=== PATIENT | male | born 1975 | race Caucasian/White ===

== ENCOUNTER 2023-05-20 07:25 | Outpatient (OUT) | payer OTHER, SELFPAY ==
[2023-05-20 10:31] LABS: Calcium 8.5 mg/dL (8.5-10.1); Carbon Dioxide 25.9 mmol/L (21.0-32.0); Chloride 101 mmol/L (98-107); Chol HDL Ratio 4.1; Cholesterol 178 mg/dL (<=200); Estimated GFR (African America >60 (>=60); Estimated GFR (Non-African Ame >60 (>=60); Glucose 94 mg/dL (74-106); HDL Cholesterol 43 mg/dL (40-60); LDL Cholesterol Calculated 117.6 mg/dL; Potassium 3.9 mmol/L (3.5-5.1); Sodium 137 mmol/L (136-145); Triglycerides 87 mg/dL (<=150); VLDL CHOLESTEROL 17.4 mg/dL
== END 2023-05-20 07:26 | disposition home or self-care (01) ==
LOC: LAB 07:25
PROVIDERS: PCP Family Medicine; Visit Provider Family Medicine
DX: Z00.00 Encounter for general adult medical examination without abnormal findings (principal)
CPT/HCPCS: 36415; 80048; 80061

== ENCOUNTER 2023-12-24 11:53 | Outpatient (OUT) | payer OTHER, SELFPAY ==
--- OUTSIDE RECORDS SUMMARY | 2023-12-24 12:02 | XMS_ITS | CCD ---
Author Organization [facility] Care Team Providers Care Casting Tester Name Role Phone DO YING Primary Care Physician Emily AGUERO Attending Unavailable NILL, Emily Quevedo Attending Unavailable NILL, Emily Quevedo Attending Unavailable NILL, DR DIAZ Admitting Unavailable NILL, DR DIAZ Attending Unavailable YING, DR DO Grimm Primary Care Unavailable NILL, DR DIAZ Consulting Unavailable NILL, DR DIAZ Admitting Unavailable NILL, DR DIAZ Attending Unavailable YING, DR DO Grimm Primary Care Unavailable NILL, DR DIAZ Consulting Unavailable MARIANNA, MARLON VENTURA Consulting Unava ilable GEMBUS, ALEX Consulting Unavailable FRANSISCAY, DR JOHN Admitting Unavailable HOY, DR JOHN Attending Unavailable YING, DR DO Grimm Primary Care Unavailable ROBERTO, DR JOHN Consulting Unavailable Allergies Allergy Classification Reported Allergen(s) Allergy Type Date of Onset Reaction(s) Facility (1 source) No Known Medication Allergies; Translations: [No Known Medication Allergies] Propensity to adverse reactions (disorder) [facility] Repository Medications Current Medications Medication Drug Class(es) Dates Sig (Normalized) Sig (Original) azithromycin 250 mg oral tablet (1 source) Macrolide Antimicrobial Start: 04-27-2023 Azithromycin Active 0 PO .COMPLEX April 27, 2023 12:00am For 250 mg dose pack: take 500 mg today (day 1), then 250 mg for 4 days (days 2-5) PO Problems Problem Classification Problem Date Documented Date Episodic/Chronic Abdominal pain (3 sources) Left upper quadrant pain; Translations: [Right upper quadrant pain] Onset: 02-15-2022 02-03-2022 Episodic Disorders of lipid metabolism (1 source) 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 Esophageal disorders (3 sources) Gastroesophageal reflux disease; Translations: [Gastro-esophageal reflux disease without esophagitis] Onset: 02-15-2022 01-30-2022 Chronic Gastritis and duodenitis (3 sources) Chronic superficial gastritis; Translations: [Chronic superficial gastritis without bleeding] Onset: 02-15-2022 Chronic Immunizations and screening for infectious disease (4 sources) Encounter for immunization; Translations: [ENCOUNTER FOR IMMUNIZATION] Onset: 01-01-2022 Episodic Influenza (1 source) Influenza due to Influenza A virus; Translations: [Influenza due to other identified influenza virus with other respiratory manifestations] 04-27-2023 Episodic Other and unspecified benign neoplasm (1 source) Lipoma (clinical) 02-03-2022 Episodic Other nutritional; endocrine; and metabolic disorders (1 source) Body mass index 30+ - obesity 02-03-2022 Chronic Other screening for suspected conditions (not mental disorders or infectious disease) (5 sources) Screening for malignant neoplasm of colon done; Translations: [Encounter for screening for malignant neoplasm of colon] Onset: 02-11-2022 Episodic Other skin disorders (1 source) Mass of chest wall 01-30-2022 Episodic Other upper respiratory disease (1 source) Nasal congestion 01-30-2022 Episodic Other upper respiratory infections (1 source) Acute maxillary sinusitis; Translations: [Acute maxillary sinusitis, unspecified] 04-27-2023 Episodic Unclassified (1 source) Patient encounter status 02-03-2022 Unclassified (1 source) CONTACT W/AND (SUSP) EXPOS COVID-19; Translations: [CONTACT W/AND (SUSP) EXPOS COVID-19] Onset: 02-14-2022 Results Test Name Value Interpretation Reference Range Facility General Surgery Office/Clini c Noteon 02-17-2022 General Surgery Office/Clinic Note Chief Complaint post operative follow up HPI Staff 6 day post operative follow up post colonoscopy and EGD with antral biopsy. LUQ pain and GERD symptoms have resolved. History of Present Illness s/p EGD and colonoscopy due to LUQ pain, GERD, colorectal screening; mild antral gastritis, bx negative for H pylori; normal colonoscopy. doing well, denies abd pain or blood in stools. Review of Systems ROS - Provider Constitutional: no fever, no sweats, no weight loss. Eyes: no glasses, no blurred vision, no visual loss. ENMT: no dentures, no hoarseness, no swallowing difficulties, no hearing loss, no ear infection(s), no nose bleeds. Cardiovascular: normal blood pressure, no chest pain, regular heartbeat, no heart murmur. Respiratory: no shortness of breath, no cough, no asthma, no wheezing. Gastrointestinal: no nausea, no vomiting, no diarrhea, no constipation, no blood in stool, no change in bowel habits, no abdominal pain, no hepatitis. Genitourinary: no kidney stones, no urine infection, no dysuria. Musculoskeletal: no pain, no weakness. Skin: no changing moles, no rash, no skin lumps. Neurologic: no seizures, no epilepsy, no headache. Psychiatric: no emotional or psychiatric problem. Heme/Lymph: no bleeding problems, no anemia, no blood clots, no transfusions. Allergy/Immunologic: no swollen lymph nodes/glands, no IV drug abuse. Other: Additional ROS info: Except as noted in the above Review of Systems and in the History of Present Illness, all other systems have been reviewed and are negative or noncontributory. Assessment/Plan 1. Chronic superficial gastritis without bleeding (K29.30: Chronic superficial gastritis without bleeding) currently asymptomatic, call with problems/questions. 2. Screening for malignant neoplasm of colon (Z12.11: Encounter for screening for malignant neoplasm of colon) normal colon; recommend screening colonoscopy in 10 years, call sooner if problems/questions. Follow-up No qualifying data available Problem List/Past Medical History Ongoing Abdominal pain, LUQ (left upper quadrant) Antral gastritis BMI 31.0-31.9,adult Chronic GERD Chronic nasal congestion Fibrolipoma GERD (gastroesophageal reflux disease) Mass of left chest wall RUQ pain Screening for malignant neoplasm of colon Very low density lipoprotinemia Historical No qualifying data Procedure/Surgical History Colonoscopy (02/11/2022), EGD - Esophagogastroduodenoscopy (02/11/2022). Medications No active medications Allergies No Known Allergies No Known Medication Allergies Social History Alcohol - Denies Alcohol Use, 02/03/2022 Substance Abuse Past, Marijuana, 02/03/2022 Tobacco Never (less than 100 in lifetime) Tobacco Use:. Never Smokeless Tobacco Use:., 02/03/2022 Family History Asthma: Sister. Hypertension: Mother. Immunizations Vaccine Date Status Comments influenza virus vaccine, inactivated - Not Given Patient Refuses Normal [facility] Comment on above: Result Comment: Elec tronically Signed By: DYLAN MANZO, Emily Lee\Date and Time Signed: 02/17/22 13:30 EST Pathology Noteon 02-13-2022 Pathology Note [id number]:127 Normal [facility] Outside Colonoscopyon 2021 Outside Colonoscopy [id number]:127 Normal [facility] Reminderson 02-12-2022 Reminders - From: Selina Edwards LPN To: N - Clinical; Sent: 02/12/2022 09:24:48 EST Show up: 01/13/2032 07:00:00 EST Subject: colonoscopy recall Due Date/Time: 02/12/2032 07:00:00 EST Reminder/Recall Patient is due for screening colonoscopy 02/12/2032. Normal [facility] Lab Reportson 02-09-2022 Lab Reports [id number]:127 Normal [facility] SARS-CoV-2 (COVID-19) RNA RAMON+probe Ql (Unsp spec) Not detected Normal NOT DETECTED [facility] Comment on above: Result Comment: This test is not yet approved or cleared by the [place] FDA. When there are no FDA-approved or cleared tests available, and other criteria are met, FDA can make tests available under an emergency access mechanism called an Emergency Use Authorization (EUA). The EUA for this test is supported by the Associate Professor Of Law of Health and Human Service's (HHS's) declaration that circumstances exist to justify the emergency use of in vitro diagnostics for the detection and/or diagnosis of the virus that causes COVID-19. This EUA will remain in effect (meaning this test can be used) for the duration of the COVID-19 declaration justifying emergency of IVDs, unless it is terminated or revoked by FDA (after which the test may no longer be used). When diagnostic testing is negative, the possibility of a false negative should be considered in the context of a patient's recent exposures and the presence of clinical signs and symptoms consistent with SARS-CoV-2. Performed By: #### [facility] #### [facility] [address] [place] [address] Dr. Rusty Talbert Pre-Certification Formon Pre-Certification Form [id number]:127 [facility] Consent for Procedure/Surger yon 02-03-2022 Consent for Procedure/Surgery [id number]:127 [facility] Physician Referralon 022 Physician Referral [id number]:127 [facility] Vital Signs Date Time Vital Sign Value Performing Clinician Faci lity 04-27-2023 14:08-0500 Body height 175.26 cm [facility] 04-27-2023 14:08-0500 Body mass index (BMI) [Ratio] 29.7 kg/m2 [facility] 04-27-2023 14:08-0500 Body temperature 98.1 [degF] [facility] 04-27-2023 14:08-0500 Body weight 91.17 kg [facility] 04-27-2023 14:08-0500 Diastolic blood pressure 71 mm[Hg] [facility] 04-27-2023 14:08-0500 Heart rate 65 /min [facility] 04-27-2023 14:08-0500 SaO2% (BldA) [Mass fraction] 97 % [facility] 04-27-2023 14:08-0500 Systolic blood pressure 110 mm[Hg] [facility] Encounters Encounter Date Encounter Type Care Provider Facility Start: 04-27-2023 Patient encounter status [facility] Start: 04-27-2023 End: 04-27-2023 ambulatory [facility] Work Phone: Start: 04-27-2023 End: 04-27-2023 Encounter for general adult medical examination without abnormal findings [facility] Start: 04-27-2023 End: 04-27-2023 Patient encounter procedure [facility] Physician [facility] Work Phone: Start: 02-17-2022 End: 02-18-2022 ambulatory Emily AGUERO Facility:[facility] Start: 02-17-2022 End: 02-17-2022 Patient encounter procedure Emily AGUERO General Surgery [facility] Start: 02-14-2022 Encounter for preprocedural laboratory examination [facility] Start: 02-11-2022 End: 02-12-2022 ambulatory Emily AGUERO Facility:CD:[id number] Start: 02-07-2022 End: 02-08-[address] EMILY AGUERO Facility:[facility] Start: 02-07-2022 End: 02-08-2022 Encounter for preprocedural laboratory examination DR EMILY AGUERO Facility:[facility] Start: 02-03-2022 End: 02-04-2022 ambulatory Emily AGUERO Facility:[facility] Start: 01-21-2022 ambulatory Emily AGUERO Facility:[facility] Start: 01-01-2022 End: [address] ALVARO MEJIA Facility:[facility] Start: 12-22-2021 ambulatory Emily AGUERO Facility:[facility] Procedures Date Procedure Procedure Detail Performing Clinician Start: 02-11-2022 Colonoscopy Emily MONDRAGON Start: 02-11-2022 Esophagogastroduodenoscopy Emily AGUERO Plan of Treatment Date Care Activity Detail Author [facility] Immunizations Immunization Date Immunization Notes Care Provider Fa cility NEGATED: Highlighted row has not occurred!02-03-2022 influenza virus vaccine, unspecified formulation Emily AGUERO [facility] [place] Payers Date Payer Category Payer Unknown [id number] [id number] [id number] 1975 Unknown [id number] 2.16.8 [id number] 1977 Unknown [id number] 2.16.8 [id number] 1977 Unknown [id number] 2.16.84 [id number] 1977 Unknown [id number] 2.16.84 [id number] 1957 Self-pay [id number] 1957 Unknown [id number] Unknown [id number] 2.16.84 [id number] Unknown MMO [id number] Unknown Insurance No Card . [id number] Social History Date Type Detail Facility Start: 02-03-2022 Tobacco smoking status Never s moked tobacco (finding) [facility] [place] [facility] [place] Sex Assigned At Male [facility] Start: 1975 Sex Assigned At Male Mariano [facility] Clinical Note 02-11-2022 Note Date & Type Note Facility 02-11-2022 Note OPERATIVE NOTE OPERATION DATE: 02/11/2022 PREOPERATIVE DIAGNOSIS: Left upper quadrant abdominal pain, colorectal screening, as well as gastroesophageal reflux disease. POSTOPERATIVE DIAGNOSIS: Mild antral gastritis as well as normal colon to cecum. PROCEDURE: EGD with antral biopsies x2, colonoscopy to cecum. SURGEON: Emily Aguero M.D. ANESTHESIA: Monitored anesthesia care. ESTIMATED BLOOD LOSS: Less than 1 mL.. INDICATIONS AND CONSENT: Patient is a 47-year-old male with history of intermittent left upper quadrant abdominal pain as well as GERD, as well as the need for colorectal screening. Indications, risks, benefits, alternatives of proceeding with EGD and colonoscopy were explained extensively to the patient, including the risks of bleeding, aspiration, esophageal/gastric/duodenal or colonic perforation or anesthetic complications. All of his questions were answered. Informed consent was obtained. PROCEDURE: Patient brought to the operating room, placed in the left lateral decubitus position. Monitored anesthesia care was provided. A bite block was placed in the patient's mouth. Scope was inserted into the oropharynx. Under direct visualization, it was advanced into the esophagus, past the cricopharyngeus, down to the stomach. The stomach was insufflated with air. The pylorus was traversed down to the descending portion of the duodenum. There was no evidence of duodenitis or ulceration. There was no scarring within the pyloric channel. The scope was pulled back into the stomach and retroflexed. There was no significant hiatal hernia. The GE junction was noted at approximately 42 cm. Within the lower stomach and the antrum, there was noted to be some mild antral gastritis without ulceration or bleeding. Biopsies were obtained x2 with pediatric cold biopsy forceps with good hemostasis. There was no distal esophagitis. Remainder of the esophagus was unremarkable. The scope was then withdrawn. Patient tolerated procedure well, was then positioned for colonoscopy. Rectal exam was performed which showed no masses or blood. Scope was then inserted into the anal canal. Under direct visualization it was advanced. With the aid of abdominal compression, it was advanced to the cecum where cecal markings were clearly identified. There was noted to be a good prep. Upon withdrawal of the scope, mucosal surfaces were carefully examined. There were no mass lesions or polyps. No inflammatory changes or ulcerations. No significant diverticulosis. The scope was retroflexed in the anal canal. There was no significant hemorrhoidal disease. There was a small hypertrophic anal papilla. Scope was then withdrawn. Patient tolerated procedure well, was sent to recovery room in good condition. Patient should have follow up screening colonoscopy in 10 years. CC: Do Ying M.D. [facility] Clinical Note 02-03-2022 Note Date & Type Note Facility 02-03-2022 Note Chief Complaint consultation for screening colonoscopy, RUQ pain and left chest mass [facility] Staff 47 year old male presents on consultation from Dr. Ying for screening colonoscopy, LUQ pain and left chest mass. Mass present known period of time. Believes this may have slightly increased in size since first noted. Denies pain or discomfort. LUQ tenderness present many years. Pain worsens by end of the day and with activity. Describes pain as pressure or fullness . Has not tried any alleviating factors. He hears/feels popping when lifting. Denies abdominal or rectal pain. No rectal bleeding or change in bowel habits. Denies nausea or vomiting. No unexplained weight loss. Never had colonoscopy in the past. No known family history of colon cancer, sister with history of polyps. History of Present Illness 47 yo male referred for colorectal screening; denies change in bms or blood in stools; no abdominal complaints; denies asa or NSAID use, no SBE prophylaxis; no previous abdominal operations or colonoscopy; no fmhx of colon polyps in his sister, dx at age 40, no fmhx of GI malignancy or IBD; no tobacco use. patient with intermittent LUQ pain; popping sensation with lifting, h/o remote injury to area, with bruised/cracked ribs, some intermittent GERD symptoms, no N/V or dysphagia, no early satiety; also lump left chest wall, sore at times, present for many years; slight increase in size. Review of Systems PHQ Score Initial Depression Screen Score: 0 ROS - Provider Constitutional: no fever, no sweats, no weight loss. Eyes: no glasses, no blurred vision, no visual loss. ENMT: no dentures, no hoarseness, no swallowing difficulties, no hearing loss, no ear infection(s), no nose bleeds. Cardiovascular: normal blood pressure, no chest pain, regular heartbeat, no heart murmur. Respiratory: no shortness of breath, no cough, no asthma, no wheezing. Gastrointestinal: no nausea, no vomiting, no diarrhea, no constipation, no blood in stool, no change in bowel habits, no abdominal pain, no hepatitis. Genitourinary: no kidney stones, no urine infection, no dysuria. Musculoskeletal: no pain, no weakness. Skin: no changing moles, no rash, yes skin lumps. Neurologic: no seizures, no epilepsy, no headache. Psychiatric: no emotional or psychiatric problem. Heme/Lymph: no bleeding problems, no anemia, no blood clots, no transfusions. Allergy/Immunologic: no swollen lymph nodes/glands, no IV drug abuse. Other: Additional ROS info: Except as noted in the above Review of Systems and in the History of Present Illness, all other systems have been reviewed and are negative or noncontributory. Physical Exam Vitals & Measurements HR: 65(Peripheral) RR: 16 BP: 131/83 HT: 69 in HT: 175.2 cm WT: 97.3 kg WT: 214.06 lb BMI: 31.7 HEENT: normal conjunctiva, sclera clear, no scleral icterus, EOM intact, PERRLA, oral mucosa moist without lesions. Neck: trachea midline, no mass, symmetric, no thyromegaly or nodules, no adenopathy Respiratory: lungs CTA, respirations non labored. Cardiovascular: regular rate and rhythm, no murmur, no pedal edema or varicosities. Gastrointestinal: soft, non distended, no tenderness, no masses, no palpable hernias, diastasis recti no, no hepatosplenomegaly; normal bs Lymphatic: no cervical adenopathy, no axillary adenopathy, no inguinal adenopathy. Musculoskeletal: normal gait, digits and nails without infection, nodes, cyanosis, clubbing. Skin: no rashes, no lesions, no ulcers, 2 cm firm, mobile nodule, mobile, nontender, no skin changes. Psychiatric/Neuro: oriented to time, place, person, judgement normal, affect appropriate for age, insight intact, no focal deficits. Tests: reviewed, review of old records completed, Discussed surgical options, risks, and possible complications with patient. Assessment/Plan 1. Abdominal pain, LUQ (left upper quadrant) (R10.12: Left upper quadrant pain) plan EGD and colonoscopy under anesthesia, at [facility], informed consent obtained. 2. Chronic GERD (K21.9: Gastro-esophageal reflux disease without esophagitis) see # 1 3. 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 4. Screening for malignant neoplasm of colon (Z12.11: Encounter for screening for malignant neoplasm of colon) see # 1 Follow-up No qualifying data available Problem List/Past Medical History Ongoing Abdominal pain, LUQ (left upper quadrant) BMI 31.0-31.9,adult Chronic GERD Chronic nasal congestion Fibrolipoma GERD (gastroesophageal reflux disease) Mass of left chest wall RUQ pain Screening for malignant neoplasm of colon Very low density lipoprotinemia Historical No qualifying data Procedure/Surgical History None. Medications No active medications Allergies No Known Allergies No Known Medication Allergies Social History Alcohol - Denies Alcohol Use, 02/03/2022 Substance Abuse Past, Marijuana, 1 (more content not included)... [facility] Comment on above: Result Comment: Elec tronically Signed By: DYLAN MANZO, Emily Lee\Date and Time Signed: 02/03/22 09:43 EST Evaluation + Plan note Note Date & Type Note Facility Evaluation + Plan note No data available for this section [facility] Evaluation note Note Date & Type Note Facility Evaluation note Diagnosis Onset Date Wellness examination [facility] Work Phone: Hospital Discharge instructions Note Date & Type Note Facility Hospital Discharge instructions No data available for this section [facility] Progress note Note Date & Type Note Facility Progress note No data available for this section [facility] Summary Purpose Family History No Family History Records FoundNo Family History Records Found Advance Directives Advance Directive Response Recorded Date/ Time Advance Directives No April 4:46pm Chief Complaint and Reason for Visit Chief Complaint Cough-COVID Negative Reason for Visit Wellness examination Additional Source Comments Patient Care team informatio n (unrecognized section and content) Team Status: Active Member Role Status Dates Adalberto Wallace MD Primary Care Provider Active Team Status: Inactive Member Role Status Dates Adalberto Wallace MD Primary Care Provider Active Start: April 27, 2023 End: April 27, 2023 Do Ying MD Attending Provider Active St art: April 27, 2023 End: April 27, 2023 (unrecognized sect ion and content) No Status Records FoundNo Status Records Found INFORMATION SOURCE (unrecogn ized section and content) DATE CREATED AUTHOR 02/18/2022 [facility] DATE CREATED AUTHOR AUTHOR'S ORGANIZ ATION 04/20/2022 [facility] Goals (unrecognized section and content) Goals may be documented in a n alternate section FOR RECORDS PERTAINING TO PATIENTS WHO ARE OR HAVE BEEN ENROLLED IN A CHEMICAL DEPENDENCY/SUBSTANCEABUSE PROGRAM, SOME INFORMATION MAY BE OMITTED. This clinical summary was aggregated from multiple sources. Caution should be exercised in using it in the provision of clinical care. This summary normalizes information from multiple sources, and as a consequence, information in this document may materially change the coding, format and clinical context of patient data. In addition, data may be omitted in some cases. CLINICAL DECISIONS SHOULD BE BASED ON THE PRIMARY CLINICAL RECORDS. [facility]. provides no warranty or guarantee of the accuracy or completeness of information in this document.
[2023-12-24 12:40] LABS: Basophils Percent Auto 0.4 % (0.2-2.0); Eosinophils Absolute Auto 0.1 10^3/uL (0.0-0.7); Eosinophils Percent Auto 1.5 % (0.9-7.0); Hematocrit 43.8 % (42.0-54.0); Hemoglobin 15.1 g/dL (14.0-18.0); Immature Granulocytes Abs Auto 0.01 10^3/uL (0.00-0.03); Immature Granulocytes Pct Auto 0.1 % (0.0-0.5); Lymphocytes Absolute Auto 2.1 10^3/uL (1.2-3.8); Lymphocytes Percent Auto 30.4 % (20.5-60.0); Mean Corpuscular HGB Conc 34.5 g/dL (29.9-35.2); Mean Corpuscular Hemoglobin 29.8 pg (25.9-34.0); Mean Corpuscular Volume 86.4 fL (80.0-94.0); Mean Platelet Volume 8.9 fL (9.5-13.5); Monocytes Absolute Auto 0.6 10^3/uL (0.3-0.8); Monocytes Percent Auto 9.1 % (1.7-12.0); Neutrophils Percent Auto 58.5 % (43.0-75.0); Platelet Count 264 10^3/uL (150-450); Red Blood Count 5.07 10^6/uL (4.70-6.10); Red Cell Distribution Width 12.7 % (11.0-15.0); White Blood Count 6.9 10^3/uL (4.0-11.0)
[2023-12-24 14:00] LABS: Uric Acid 5.4 mg/dL (3.5-7.2)
== END 2023-12-24 11:54 | disposition home or self-care (01) ==
LOC: LAB 11:56
PROVIDERS: PCP Family Medicine; Visit Provider Family Medicine
DX: M79.672 Pain in left foot (principal)
CPT/HCPCS: 36415; 84550; 85025